=== PATIENT | female | born 1945 | race Caucasian/White ===

== ENCOUNTER 2018-06-18 19:47 | Emergency (ER) | payer OTHER ==
[~2018-06-18] VITALS: Ht 157.5 cm; Wt 68.9 kg
[~2018-06-18 19:47] MED LIST: CLARITIN10 MG; CYCLOBENZAPRINE10 MG; HYDROMORPHONE HC2 MG; LEXAPRO20 MG; ORPH100T PO; RITALIN20 MG
[2018-06-18] MEDS ORDERED: RITALIN LA20 MG (20:28)
== END 2018-06-18 21:16 | disposition home or self-care (01) ==
LOC: ER 19:47
DX: H60.8X2 Other otitis externa, left ear (principal)